=== PATIENT | male | born 1980 ===

== ENCOUNTER 2018-03-23 10:36 | Emergency (ER) | payer BC ==
[2018-03-23 10:44] VITALS: BMI 28.8
[2018-03-23 10:46] VITALS: O2SAT 100
[2018-03-23] MEDS ORDERED: Morphine 4 MG/ML VIAL IV ONE (11:32)
[2018-03-23] MEDS ORDERED: Sodium Chloride 0.9% 1,000 ML IV ONE (11:32)
--- NOTE | 2018-03-23 11:33 | C.PDOC ---
Time Seen by Provider: 03/23/18 11:20 Chief Complaint (Nursing): Male Genitourinary Past Medical History Vital Signs: Last Vital Signs Temp 97.6 F 03/23/18 10:44 Pulse 62 03/23/18 10:44 Resp 19 03/23/18 10:44 BP 135/88 03/23/18 10:44 Pulse Ox 100 03/23/18 10:44 - Medical History PMH: Kidney Stones - Social History Hx Alcohol Use: No Hx Substance Use: No - Immunization History Hx Tetanus Toxoid Vaccination: No Hx Influenza Vaccination: No Hx Pneumococcal Vaccination: No ED Course And Treatment O2 Sat by Pulse Oximetry: 100 Disposition - Disposition
[2018-03-23] MEDS ORDERED: Sodium Chloride 0.9% 1,000 ML ONE (11:35)
[2018-03-23] MEDS ORDERED: Morphine 4 MG/ML VIAL ONE (11:35)
--- NOTE | 2018-03-23 11:35 | C.PDOC ---
History Of Present Illness 37 y/o male pt presents to the ER c/o right flank pain that radiates to his right testicle. Associated sx includes pain and vomiting. Pt denies nausea, fever and chills. Time Seen by Provider: 03/23/18 11:20 Chief Complaint (Nursing): Male Genitourinary History Per: Patient History/Exam Limitations: no limitations Onset/Duration Of Symptoms: Days Current Symptoms Are (Timing): Still Present Past Medical History Reviewed: Historical Data, Nursing Documentation, Vital Signs Vital Signs: Last Vital Signs Temp 97.6 F 03/23/18 10:44 Pulse 62 03/23/18 10:44 Resp 19 03/23/18 10:44 BP 135/88 03/23/18 10:44 Pulse Ox 100 03/23/18 10:44 - Medical History PMH: Kidney Stones Family History: States: No Known Family Hx - Social History Hx Alcohol Use: No Hx Substance Use: No - Immunization History Hx Tetanus Toxoid Vaccination: No Hx Influenza Vaccination: No Hx Pneumococcal Vaccination: No Review Of Systems Except As Marked, All Systems Reviewed And Found Negative. Constitutional: Negative for: Fever, Chills Gastrointestinal: Positive for: Vomiting, Abdominal Pain (Right flank pain ). Negative for: Nausea Genitourinary: Positive for: Other (right testicle pain from right flank pain ) Physical Exam - Physical Exam Appears: Non-toxic, No Acute Distress Skin: Warm, Dry Head: Atraumatic Eye(s): bilateral: Normal Inspection, EOMI Gastrointestinal/Abdominal: Soft, Tenderness (right flank ), No Distention, No Guarding, No Rebound Male Genital: Other (testicle pain ) Extremity: Normal ROM (x4) Neurological/Psych: Oriented x3, Normal Speech ED Course And Treatment - Laboratory Results Result Diagrams: 03/23/18 11:46 03/23/18 11:46 O2 Sat by Pulse Oximetry: 100 (RA) - CT Scan/US abd&pelvis Other Rad Studies (CT/US): Read By Radiologist, Radiology Report Reviewed CT/US Interpretation: Accession No. : [id number]. Patient Name / ID : JOSE APODACA / [id number]. Exam Date : 03/23/2018 12:52:21 ( Approved ). Study Comment : Sex / Age : M / 37Y. Creator : Rober Vences MD. Dictator : Rober Vences MD. Sport Internship : Emergency Dispatch Operator : Rober Vences MD. Approver2 : Report Date : 03/23/2018 13:28:35. My Comment : . Date of service: 03/23/2018. PROCEDURE: CT Abdomen and Pelvis without intravenous contrast. HISTORY: kidney stone. COMPARISON: None. TECHNIQUE: Axial and reformatted coronal and sagittal CT images of the abdomen and pelvis were obtained without IV or oral contrast administration. Contrast dose: 0. Radiation dose: Total exam DLP = 1104.01 mGy-cm. This CT exam was performed using one or more of the following dose reduction techniques: Automated exposure control, adjustment of the mA and/or kV according to patient size, and/or use of iterative reconstruction technique. FINDINGS: LOWER THORAX: Linear opacities at the lung bases likely atelectasis. LIVER: Hepatomegaly with findings suggestive of [id number] hepatic steatosis. GALLBLADDER AND BILE DUCTS: Unremarkable. PANCREAS: Unremarkable. No gross lesion or ductal dilatation. SPLEEN: Unremarkable. ADRENALS: Unremarkable. No mass. KIDNEYS AND URETERS: There are bilateral nonobstructing renal ca lculi. The largest calculus in the right measures 14.5 millimeter. The largest calculus in the left measures 3 millimeter. There is mild right hydronephrosis and hydroureter up to 2.6 millimeter calculus at the distal right ureter at or adjacent to the right UV junction. VASCULATURE: Unremarkable. No aortic aneurysm. No aortic atherosclerotic calcification or mural plaque present. BOWEL: Unremarkable. No obstruction. No gross mural thickening. APPENDIX: Unremarkable. Normal appendix. PERITONEUM: Unremarkable. No free fluid. No free air. LYMPH NODES: Unremarkable. No enlarged lymph nodes. BLADDER: Unremarkable. REPRODUCTIVE: Unremarkable. BONES: No acute fracture. OTHER FINDINGS: None. IMPRESSION: Mild right hydronephrosis and hydroureter up to 2.6 millimeter calculus at the right UV junction. Bilateral nonobstructing right renal calculi larger on the right. No evidence of other acute pathology. Medical Decision Making Medical Decision Making: Impression: Kidney Stones Plans: -- toradol -- morphine -- IV fluids -- chem labs -- blood work -- Urine Cx -- UA Disposition - Disposition Referrals: Max Simpson Jr., MD [Staff Provider] - Disposition: HOME/ ROUTINE Disposition Time: 14:07 Condition: GOOD Additional Instructions: Please call the urologist on Sunday to make an appointment and take the motrin for pain. Return if fever, vomiting or worsening pain. Prescriptions: Ibuprofen [Motrin] 600 mg PO Q6 #20 tab Instructions: Kidney Stones in Adults Forms: [facility] ([employer]) Print Language: SOUTH AFRICAN - Clinical Impression Clinical Impression: Kidney stone - Scribe Statement The provider has reviewed the documentation as recorded by the Scribe Vieyra Do Provider Attestation: All medical record entries made by the Scribe were at my direction and personally dictated by me. I have reviewed the chart and agree that the record accurately reflects my personal performance of the history, physical exam, medical decision making, and the department course for this patient. I have also personally directed, reviewed, and agree with the discharge instructions and disposition.
[2018-03-23 11:49] LABS: BASO % 0.2 % (0.0-2.0); EOS # 0.1 K/uL (0.0-0.7); EOS % 1.5 % (0.0-4.0); HEMOGLOBIN 14.6 g/dL (12.0-18.0); LYMPH # 2.4 K/uL (1.0-4.3); LYMPH % 34.3 % (20.0-40.0); MEAN CELL VOLUME 90.3 fL (80.0-94.0); MEAN CORPUSCULAR HEMOGLOBIN 31.5 pg (27.0-31.0); MEAN CORPUSCULAR HGB CONC 34.8 g/dL (33.0-37.0); MEAN PLATELET VOLUME 9.5 fL (7.2-11.7); MONO # 0.8 K/uL (0.0-0.8); MONO % 10.8 % (0.0-10.0); NEUT # 3.7 K/uL (1.8-7.0); NEUT % 53.2 % (50.0-75.0); NRBC % 0.1 % (0.0-2.0); RBC 4.65 Mil/uL (4.40-5.90); RED CELL DISTRIBUTION WIDTH 12.5 % (11.5-14.5)
[2018-03-23 12:08] LABS: ALB/GLOB RATIO 1.4 (1.0-2.1); ALBUMIN 4.2 g/dL (3.5-5.0); ALT/SGPT 73 U/L (21-72); AST/SGOT 59 U/L (17-59); BLOOD UREA NITROGEN 17 mg/dL (9-20); CALCIUM 8.8 mg/dl (8.6-10.4); GFR NON-AFRICAN AMERICAN > 60
[2018-03-23 13:04] LABS: SQUAMOUS EPITHIAL < 1 /hpf (0-5); URINE BACTERIA RARE (<OCC); URINE BILIRUBIN NEGATIVE (NEGATIVE); URINE BLOOD 2+ (NEGATIVE); URINE CLARITY Clear (Clear); URINE COLOR Yellow (YELLOW); URINE GLUCOSE (UA) NORMAL (Normal); URINE HYALINE CAST 0-2 /lpf (0-2); URINE LEUKOCYTE ESTERASE NEG Leu/uL (Negative); URINE PROTEIN NEGATIVE (NEGATIVE)
[2018-03-23 13:11] VITALS: BP 103/68; PULSE 65; RESP 17; TEMP 98
--- NOTE | 2018-03-23 13:32 | CT ---
Date of service: 03/23/2018 PROCEDURE: CT Abdomen and Pelvis without intravenous contrast HISTORY: kidney stone COMPARISON: None. TECHNIQUE: Axial and reformatted coronal and sagittal CT images of the abdomen and pelvis were obtained without IV or oral contrast administration. Contrast dose: 0 Radiation dose: Total exam DLP = 1104.01 mGy-cm. This CT exam was performed using one or more of the following dose reduction techniques: Automated exposure control, adjustment of the mA and/or kV according to patient size, and/or use of iterative reconstruction technique. FINDINGS: LOWER THORAX: Linear opacities at the lung bases likely atelectasis. LIVER: Hepatomegaly with findings suggestive of [id number] hepatic steatosis. GALLBLADDER AND BILE DUCTS: Unremarkable. PANCREAS: Unremarkable. No gross lesion or ductal dilatation. SPLEEN: Unremarkable. ADRENALS: Unremarkable. No mass. KIDNEYS AND URETERS: There are bilateral nonobstructing renal calculi. The largest calculus in the right measures 14.5 millimeter. The largest calculus in the left measures 3 millimeter. There is mild right hydronephrosis and hydroureter up to 2.6 millimeter calculus at the distal right ureter at or adjacent to the right UV junction. VASCULATURE: Unremarkable. No aortic aneurysm. No aortic atherosclerotic calcification or mural plaque present. BOWEL: Unremarkable. No obstruction. No gross mural thickening. APPENDIX: Unremarkable. Normal appendix. PERITONEUM: Unremarkable. No free fluid. No free air. LYMPH NODES: Unremarkable. No enlarged lymph nodes. BLADDER: Unremarkable. REPRODUCTIVE: Unremarkable. BONES: No acute fracture. OTHER FINDINGS: None. IMPRESSION: Mild right hydronephrosis and hydroureter up to 2.6 millimeter calculus at the right UV junction. Bilateral nonobstructing right renal calculi larger on the right. No evidence of other acute pathology.
== END 2018-03-23 14:07 | disposition home or self-care (01) ==
LOC: C.ER 10:36
DX: N20.0 Calculus of kidney (principal)
CPT/HCPCS: 74176; 80053; 81001; 85025; 87086; 96361; 96374; 96375; 99285; J1885; J2270; J7030